=== PATIENT | female | born 2000 | race Two or more races ===

== ENCOUNTER 2024-01-18 14:13 | Observation (INO) | payer MEDICAID, SELFPAY ==
[2024-01-18] VITALS (40 sets, daily range): BP systolic 119–120; BP diastolic 76–86; PULSE 108–135; RESP 18–22; TEMP 36.8–37.6; O2SAT 90–100; BMI 42.4
[2024-01-18] MEDS: RINGERS LACTATED 1000 ML 1,000 ML 999 ML IV (14:45)
[2024-01-18 15:43] LABS: Collection Type, Urine Clean Catch
[2024-01-18 15:44] LABS: Basophils % (Auto) 0 % (0-2.5); Eosinophils # (Auto) 0.1 Thou/mm3 (0.0-0.5); Eosinophils % (Auto) 1 % (0-10); Hematocrit 37.8 % (36.0-46.0); Hemoglobin 12.5 g/dL (12.0-16.0); Immature Granulocytes % (Auto) 0 % (0-0); Immature Granulocytes Auto 0.04 Thou/mm3 (0.00-0.00); Lymphocytes # (Auto) 0.5 Thou/mm3 (1.0-4.8); Lymphocytes % (Auto) 4 % (10-50); Mean Corpuscular HGB Conc 33.1 g/dl (31.0-37.0); Mean Corpuscular Hemoglobin 27.1 pg (25.0-35.0); Mean Corpuscular Volume 82 fL (80-100); Monocytes # (Auto) 0.6 Thou/mm3 (0.0-0.8); Monocytes % (Auto) 5 % (0-12); Neutrophils # (Auto) 10.9 Thou/mm3 (1.8-7.7); Neutrophils % (Auto) 90 % (37-80); Nucleated Red Blood Cell % 0 /100 WBC (0); Platelet Count 175 Thou/mm3 (140-440); RDW Standard Deviation 47.7 fL (36.4-46.3); Red Blood Count 4.62 Miln/mm3 (4.00-5.20); White Blood Count 12.1 Thou/mm3 (3.6-11.0)
[2024-01-18 15:52] LABS: Bilirubin,Urine Negative (Negative); Blood,Urine Negative (Negative); Clarity,Urine Clear (Clear/Hazy); Color,Urine Lt-Yellow (Lt Yel-Yel); Glucose, Urine Negative (Negative); Ketones,Urine Negative (Negative); Nitrite,Urine Negative (Negative); PH,Urine 5.5 (5.0-7.0); Protein,Urine Trace (Neg - Trace); RBC,Urine 1 /hpf (0-3); Specific Gravity,Urine 1.018 (1.001-1.035); Squamous Epithelial Cell,Urine 4 /hpf (0-5); Urobilinogen,Urine Negative mg/dL (0.0-1.0); WBC,Urine 1 /hpf (0-5)
[2024-01-18 15:53] LABS: Leukocyte Esterase,Urine Negative (Negative)
[2024-01-18 16:14] LABS: Alanine Aminotransferase 14 U/L (10-49); Albumin, Serum 3.9 gm/dL (3.5-5.0); Albumin/Globulin Ratio 1.3 (1.2-2.2); Alkaline Phosphatase 214 U/L (46-116); Anion Gap 10 (7-16); Aspartate Amino Transferase 16 U/L (0-34); BUN/Creatinine Ratio 23 Ratio (12-20); Bilirubin,Total 0.6 mg/dL (0.3-1.2); Blood Urea Nitrogen 9 mg/dL (9-23); Calcium 8.8 mg/dL (8.3-10.6); Calcium (Corrected) 8.9 mg/dL (8.5-10.1); Carbon Dioxide 20.6 mMol/L (20.0-31.0); Chloride 104 mMol/L (98-107); Creatinine (Component) 0.4 mg/dL (0.6-1.3); Estimated Creatinine Clearance 222.9 mL/min (>60); Glucose 76 mg/dL (74-106); LDH (Lactate Dehydrogenase) 241 U/L (120-246); Osmolality,Calculated 267 (275-295); Potassium 3.8 mMol/L (3.4-5.1); Sodium 135 mMol/L (136-145); Total Protein 6.9 gm/dL (5.7-8.2); Uric Acid 4.8 mg/dL (3.1-7.8); eGFR > 60 See Note
[2024-01-18 16:21] LABS: Syphilis Nonreactive (Nonreactive)
--- NOTE | 2024-01-18 17:54 | PC.NURSE ---
Patient arrived to triage at 1400 complaining of uterine contractions every 3-5 minutes that started at 0900. Patient denies any LOF/bleeding. Patient states active movement. On arrival patient with elevated maternal HR between 120-135. Labs and EKG ordered by Vanna Vee CNM. Results WNL. NST reactive. Patient checked 2 hours after initial cervical exam and patient unchanged. Patient declines IV pain medication and or epidural. Ordered to discharge patient. Patient instructed to follow up with OB at next scheduled appt this week. Labor precautions given including reasons to return. Patient verbalizes understanding, all questions answered and encouraged.
[2024-01-18 20:54] LABS: Fibrinogen 553 mg/dL (175-375); Partial Thromboplastin Time 30.5 Seconds (22.0-36.0); Prothrombin Time 10.6 Seconds (9.0-12.2)
== END 2024-01-18 17:34 | disposition home or self-care (01) ==
PROVIDERS: Admitting Provider Advanced Practice Midwife; Visit Provider Advanced Practice Midwife
DX: Z34.83 Encounter for supervision of other normal pregnancy, third trimester (principal); Z3A.38 38 weeks gestation of pregnancy
CPT/HCPCS: 36415; 59025; 59899; 80053; 81001; 83615; 84550; 85025; 85384; 85610; 85730; 86780; 86850; 86900; 86901; J7120

== ENCOUNTER 2024-01-27 15:50 | Inpatient (IN) | payer MEDICAID, SELFPAY ==
[2024-01-27] VITALS (16 sets, daily range): BP systolic 107–132; BP diastolic 56–91; PULSE 88–106; RESP 18; TEMP 36.7–36.8; BMI 38.8
--- NOTE | 2024-01-27 15:45 | XR_ITS ---
Examination: Biophysical profile, ultrasound Date and time of exam: January 27, 2024 1725 hrs. Indications: Leaking amniotic fluid today Technique: Multiple transabdominal sonographic images of the pelvis abdomen obtained. Attention is directed to the breathing movement, gross body movement, amniotic fluid volume and tone. Findings: Amniotic fluid index 12.0 cm Total biophysical profile is 8 of 8. breathing movement is 2. Gross body movement is 2. tone is 2. Qualitative amniotic fluid volume is 2 Impression: Biophysical profile is 8 of 8.
--- NOTE | 2024-01-27 15:45 | XR_ITS ---
Examination: Complete OB ultrasound greater than 14 weeks Date and time of exam: January 27, 2024 1654 hrs. Indications: Leaking amniotic fluid today Findings: Viable intrauterine single fetus with single amniotic sac presentation cephalic Cardiac motion 147 BPM Placenta anterior grade 3 Umbilical cord insertion seen Amniotic fluid index 13 cm Cervix 3.2 cm Ovaries obscured by the enlarged uterus. Composite estimated gestational age based on BPD, head circumference, abdominal circumference, femur length is 38 weeks 5 days Estimated weight 3846.8 g. Survey of intracranial anatomy, spinal anatomy, abdominal anatomy, four-chamber heart performed with no abnormalities identified. Impression: Viable intrauterine gestation cephalic presentation. Estimated gestational age 38 weeks 5 days Estimated weight 3846.8 g Amniotic fluid index 13 cm
[2024-01-27 16:26] LABS: ROM Kit Lot # 57805053
[2024-01-27 16:27] LABS: ROM Swab Mixed By: MEDIA1; Rupture of Fetal Membranes Positive (Negative); Swb Mxed in Solvent 1 min? Yes
[2024-01-27 17:40] LABS: Basophils % (Auto) 0 % (0-2.5); Eosinophils # (Auto) 0.1 Thou/mm3 (0.0-0.5); Eosinophils % (Auto) 1 % (0-10); Hematocrit 37.3 % (36.0-46.0); Hemoglobin 12.2 g/dL (12.0-16.0); Immature Granulocytes % (Auto) 0 % (0-0); Immature Granulocytes Auto 0.04 Thou/mm3 (0.00-0.00); Lymphocytes # (Auto) 1.4 Thou/mm3 (1.0-4.8); Lymphocytes % (Auto) 15 % (10-50); Mean Corpuscular HGB Conc 32.7 g/dl (31.0-37.0); Mean Corpuscular Hemoglobin 26.7 pg (25.0-35.0); Mean Corpuscular Volume 82 fL (80-100); Monocytes # (Auto) 0.8 Thou/mm3 (0.0-0.8); Monocytes % (Auto) 8 % (0-12); Neutrophils # (Auto) 7.3 Thou/mm3 (1.8-7.7); Neutrophils % (Auto) 76 % (37-80); Nucleated Red Blood Cell % 0 /100 WBC (0); Platelet Count 178 Thou/mm3 (140-440); RDW Standard Deviation 47.3 fL (36.4-46.3); Red Blood Count 4.57 Miln/mm3 (4.00-5.20); White Blood Count 9.6 Thou/mm3 (3.6-11.0)
[2024-01-27] MEDS: RINGERS LACTATED 1000 ML 1,000 ML 100 ML IV (18:06)
[2024-01-27 18:39] LABS: Syphilis Nonreactive (Nonreactive)
[2024-01-27] MEDS: MISOPROSTOL 50 mCg TABLET PO (21:29)
[2024-01-28] VITALS (47 sets, daily range): BP systolic 98–141; BP diastolic 55–87; PULSE 70–106; RESP 16–18; TEMP 36.6–37.1; O2SAT 82–100
[2024-01-28] MEDS: MISOPROSTOL 50 mCg TABLET PO (02:40)
[2024-01-28] MEDS: Ampicillin Inj 2,000 MG in SODIUM CHLORIDE 0.9% (P) 100 ML 100 MG IV (03:10)
[2024-01-28] MEDS: fentaNYL CIT INJ 50 mCg/ML AMP 2ML 100 MCG IV (05:57)
[2024-01-28] MEDS: OXYTOCIN in NS 30 units 30 UNIT/500 ML BAG IV (06:50)
--- NOTE | 2024-01-28 07:24 | PC.NURSE ---
pt placed on bedpan
[2024-01-28] MEDS: MINERAL OIL 30 ML UDC TOP (07:29)
[2024-01-28] MEDS: MISOPROSTOL 200 mCg TABLET 800 MCG PR (07:33)
[2024-01-28] MEDS: OXYTOCIN INJ 10 UNIT/ML VIAL IM (07:36)
[2024-01-28] MEDS: OXYTOCIN in NS 20 units 20 UNIT/1,000 ML BAG 125 UNIT IV (07:36)
[2024-01-28] MEDS: TRANEXAMIC ACID 1,000 MG IVPB 1,000 MG/100 ML BAG 200 MG IV (07:40)
[2024-01-28] MEDS: BENZO/LANO/ALOE (Dermoplast) 60 GM CAN 1 SPRAY TOP (07:42)
--- NOTE | 2024-01-28 07:56 | PD.LDHP ---
Documentation for date of: 01/28/24 OB Labor/Induct. HPI History of Present Illness Chief complaint: ROM : 4 Para: 3 Term pregnancies: 3 pregnancies: 0 Living children: 3 History of Abortions: Spontaneous and Elective: 0 History of Vaginal deliveries: 3 History of sections: No History of : No Date of last menstrual period: 04/26/23 RALPH: 01/31/24 Gestational Age (weeks): 39 Gestational Age (days): 4 Gestational age based on last menstrual period: 39 Indication for induction: medical complication (GDM on metformin on metformin 500 bid) History of present illness: This is a 23-year-old 4 para 3 admit to labor and delivery with complaints of leaking since 1240 and contractions since then as well however mild and irregular. Patient is been followed at [facility] care. First visit 8 weeks. Last. April 25. Estimated due date January 31, 2024. Patient had 2 MFM ultrasounds and both confirmed dates and showed normal anatomy. Patient been followed at [facility] care. First visit 8 weeks. She A+, antibody screen negative, RPR nonreactive, rubella immune, hepatitis B negative,, hepatitis C negative, HIV negative, she GC and Chlamydia were negative. Patient had abnormal 1 hour and her 3-hour was abnormal as well. She was then started on metformin 500 twice daily and GDM diet with weekly NST BPP and GBS negative. Denies social habits. Denies surgery. Denies chronic illness. History of Present Dating criteria: LMP confirmed by 1st trimester US Adequate Care: Yes Ultrasounds: normal 1st trimester US and normal mid trimester US Obstetrical complications: gestational diabetes Medical complications: none Labs Labs: Negative: Hepatitis B, HIV, Chlamydia, Gonorrhea and Group Beta Strep Review of Systems Review of Systems Systems Reviewed: All systems reviewed, normal except as documented Past Medical History Surgical History SURGICAL: Negative Section Meds Home Medications and Allergies Home Medications ?Medication ?Instructions ?Recorded ?Confirmed ?Type pren vit comb.1-iron cb-FA-DSS 90 1 tab PO DAILY 05/30/22 01/27/24 History mg-1 mg-50 mg tablet metformin 500 mg tablet 500 mg PO BID 01/18/24 01/27/24 History Allergies Allergy/AdvReac Type Severity Reaction Status Date / Time lactose AdvReac Severe Abdominal Verified 01/27/24 16:38 Pain OB Exam Physical Exam Vital signs: Temp Pulse Resp BP Pulse Ox 98.3 F 90 17 139/87 H 99 01/28/24 06:09 01/28/24 07:04 01/28/24 06:09 01/28/24 07:04 01/28/24 07:30 Narrative: Alert and oriented. Normal heart rate and rhythm. Lungs clear no wheezes. Gravid abdomen. Gynecoid pelvis. Estimated weight 8 and half pounds. Vaginal exam on admission was 2-3, 50%, -3. Posterior. And soft. heart category 1 with accelerations and moderate variability irregular mild uc Detailed Labor and Delivery Exam Dilation (cm): 3 Effacement (%): 50 Cervix position: posterior station: -3 Consistency: soft Presentation: Vertex Cervical ripeness score: 5 Membranes: ruptured Amniotic fluid: clear Baseline heart rate: 135 monitor accelerations: 15x15 monitor decelerations: None continuous churn buttermaker variability: Moderate (11-25) Contraction duration (sec): 30 Tachysystole: No Contraction intensity: Mild OB Results Labs 01/27/24 17:20 Labs: Short CBC 01/27/24 Range/Units 17:20 WBC 9.6 (3.6-11.0) Thou/mm3 Hgb 12.2 (12.0-16.0) g/dL Hct 37.3 (36.0-46.0) % Plt Count 178 (140-440) Thou/mm3 Impressions Impression: GDM on metformin. Rupture membranes early labor OB Assessment & Plan Assessment and Plan (1) Normal labor and delivery: Status: Acute Additional Plan Induction method: per misoprostol protocol Plan: induction, anticipate NVD and consult MD renae
--- NOTE | 2024-01-28 08:02 | OBDSUM_ITS ---
Data ([employer]) Data Hx Section: No : 4 Para: 3 Term: 3 : 0 : 0 Delivery Data ([employer]) Labor Data Stimulated/Augmented: No Induction: Yes Method: Cytotec ROM Date: 01/27/24 ROM Time: 12:50 Rupture Type: SROM Amniotic Fluid: Clear Delivery Data EDC: 01/31/24 EDC calculated by:: LMP/early US confirmation Labor Onset Stage 1 Date: 01/28/24 Labor Onset Stage 1 Time: 05:57 Labor Onset Stage 2 Date: 01/28/24 Labor Onset Stage 2 Time: 07:13 Delivery Date: 01/28/24 Delivery Time: 07:32 Gestational age (weeks): 39 Gestational age (days): 4 Placenta Delivery Date: 01/28/24 Placenta Delivery Time: 07:36 Delivered by: Vanna Vee Delivery nurse: Corry Menendez Delivery Method Delivery: Vaginal Delivery Type: Spontaneous Presentation: Vertex Position: OA Anesthesia Type Primary Anesthesia: None Delivery Room Medications Intrapartum Medications: Narcotics and Tocolytics Post Delivery Medications: Antibiotics, Tocolytics and Cytotec Post Delivery Medications N/A: No Placenta Placenta Delivery: Spontaneous (placenta inspected, intact, membranes intact) Placenta Sent for Examination: No Cord Sample: Cord Blood Obtained Episiotomy Episiotomy: None Lacerations #1: Periurethral: no repair EBL Estimated blood loss (ml): 400 Umbilical Cord Umbilical Vessels: 3 Nuchal Cord: None Body Cord: None [employer] Data ([employer]) [employer] Data Infant Gender: Male Weight Grams: 4090 1 Minute Total: 7 5 Minute Total: 9
[2024-01-28] MEDS: IBUPROFEN TAB 400 MG TABLET 800 MG PO ×2 (09:17→23:07)
[2024-01-28 17:09] LABS: Basophils % (Auto) 0 % (0-2.5); Eosinophils # (Auto) 0.1 Thou/mm3 (0.0-0.5); Eosinophils % (Auto) 1 % (0-10); Hematocrit 31.1 % (36.0-46.0); Hemoglobin 10.2 g/dL (12.0-16.0); Immature Granulocytes % (Auto) 1 % (0-0); Immature Granulocytes Auto 0.06 Thou/mm3 (0.00-0.00); Lymphocytes # (Auto) 1.6 Thou/mm3 (1.0-4.8); Lymphocytes % (Auto) 13 % (10-50); Mean Corpuscular HGB Conc 32.8 g/dl (31.0-37.0); Mean Corpuscular Hemoglobin 27.3 pg (25.0-35.0); Mean Corpuscular Volume 83 fL (80-100); Monocytes # (Auto) 0.9 Thou/mm3 (0.0-0.8); Monocytes % (Auto) 7 % (0-12); Neutrophils # (Auto) 9.9 Thou/mm3 (1.8-7.7); Neutrophils % (Auto) 79 % (37-80); Nucleated Red Blood Cell % 0 /100 WBC (0); Platelet Count 183 Thou/mm3 (140-440); RDW Standard Deviation 48.4 fL (36.4-46.3); Red Blood Count 3.73 Miln/mm3 (4.00-5.20); White Blood Count 12.5 Thou/mm3 (3.6-11.0)
[2024-01-29 04:16] VITALS: BP 121/75; PULSE 72; RESP 16; TEMP 36.5; O2SAT 98
[2024-01-29] MEDS: ACETAMINOPHEN 325 MG TABLET 650 MG PO (05:42)
[2024-01-29 08:00] VITALS: BP 123/78; PULSE 78; RESP 18; TEMP 36.8; O2SAT 98
--- NOTE | 2024-01-29 08:25 | ESPR_ITS ---
Subjective Subjective Interval history: No complaints of pain. No dizziness. Bonding and breast-feeding. Patient wants Depo Provera prior to discharge Exam Vital Signs Temp Pulse Resp BP Pulse Ox O2 Del Method 97.7 F 72 16 121/75 98 Room Air 01/29/24 04:16 01/29/24 04:16 01/29/24 04:16 01/29/24 04:16 01/29/24 04:16 01/29/24 04:16 Narrative Exam Vital signs stable afebrile. Breasts are soft. Fundus firm below the umbilicus. Perineum intact no swelling. Small lochia. Uterus well involuted. Negative Homans' sign. No signs of phlebitis. Objective Labs 01/28/24 16:40 Labs: Laboratory Results - last 24 hr 01/28/24 16:40 WBC 12.5 H RBC 3.73 L Hgb 10.2 L D Hct 31.1 L MCV 83 MCH 27.3 MCHC 32.8 RDW Std Deviation 48.4 H Plt Count 183 Neut % (Auto) 79 Lymph % (Auto) 13 [place] % (Auto) 7 Eos % (Auto) 1 Baso % (Auto) 0 Neut # (Auto) 9.9 H Lymph # (Auto) 1.6 [place] # (Auto) 0.9 H Eos # (Auto) 0.1 Baso # (Auto) 0.0 Immature Gran # (Auto) 0.06 H Absolute Nucleated RBC 0.00 Immature Gran % 1 H Nucleated RBC % 0 Assessment & Plan Problem List (1) Normal labor and delivery: Status: Acute Assessment Comment Assessment comment: 24 hr pp Plan Comment Plan Comment: Discharge home with baby today. Depo-Provera 150 IM prior to discharge. No sex for at least 2 weeks. Reviewed Depo-Provera and signs and symptoms. Discussed signs and symptoms of infection. Discussed ER precautions and parameters. Discussed danger signs and symptoms. Increase fluids and rest. Return in 3 weeks visit Time Spent With Patient Time: Total time spent is greater than 50% in coordination of care (as documented) at patient's floor/unit and/or counseling patient:
--- NOTE | 2024-01-29 08:27 | ESDS_ITS ---
DS: Providers Provider Date of admission: 01/27/24 17:15 Primary care physician: Physician No Primary/Family Admitting Provider: Vanna Vee CNM Attending Provider on Admission: Vanna Vee CNM Consults: 01/28/24 08:09 Referral Routine Comment: Attending Provider on DC: Vanna Vee CNM Discharging Provider: Vanna Vee CNM DS: Diagnosis Problem List Completed Was Problem List Reviewed/Reconciled?: Yes Summary/Hosp Course Brief History: This is a 23-year-old 4 para 3 admit to labor and delivery with complaints of leaking since 1240 and contractions since then as well however mild and irregular. Patient is been followed at [facility] care. First visit 8 weeks. Last. April 25. Estimated due date January 31, 2024. Patient had 2 MFM ultrasounds and both confirmed dates and showed normal anatomy. Patient been followed at [facility] care. First visit 8 weeks. She A+, antibody screen negative, RPR nonreactive, rubella immune, hepatitis B negative,, hepatitis C negative, HIV negative, she GC and Chlamydia were negative. Patient had abnormal 1 hour and her 3-hour was abnormal as well. She was then started on metformin 500 twice daily and GDM diet with weekly NST BPP and GBS negative. Denies social habits. Denies surgery. Denies chronic illness. Peripartum Data Delivery Method: Normal Vaginal Delivery Episiotomy Description: None Laceration Description: yes (PU, no repair) Time Spent with Patient Time attestation: Total time spent providing and/or coordinating discharge services: Exam Vital Signs Temp Pulse Resp BP Pulse Ox O2 Del Method 97.7 F 72 16 121/75 98 Room Air 01/29/24 04:16 01/29/24 04:16 01/29/24 04:16 01/29/24 04:16 01/29/24 04:16 01/29/24 04:16 Discharge Plan Plan Patient Disposition: HOME (Self Care) Prescriptions/Referrals Prescriptions/Med Rec: No Action metformin 500 mg Tablet 500 mg PO BID pren vit comb.1-iron cb-FA-DSS 90-1-50 mg Tablet 1 tab PO DAILY Referrals: No Primary/Family,Physician [Primary Care Provider] - Patient/Caregiver Discharge Instructions Print Language: Ivorian Activity Restrictions/Additional Instructions: Depo-Provera 150 IM prior to discharge. No sex for 2 weeks. Reviewed Depo signs symptoms and side effects. Discussed ER precautions and parameters. Discussed danger signs symptoms and signs symptoms of infection. Discharged today with baby. Return to [facility] in 3 weeks visit. Increase fluids and rest. Tylenol or ibuprofen for pain. And continue vitamins Stand Alone Forms: Laura Award Info., Patient Portal Info Letter Discharge Order Discharge Orders: Discharge (Routine); Ordered 01/29/24 Ordered By: Vanna Vee Planned Discharge Date 01/29/24
[2024-01-29] MEDS: MEDRoxyPROGESTERone ACET Inj 150 MG/ML SYRINGE IM (09:48)
--- NOTE | 2024-01-29 10:54 | PC.NURSE ---
Cleared by social media specialist
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
== END 2024-01-29 11:30 | disposition home or self-care (01) | DRG 560 ==
LOC: S4SX 01-28 13:30 → S4NX 01-28 15:09
PROVIDERS: Admitting Provider Advanced Practice Midwife; Visit Provider Advanced Practice Midwife
DX: O24.425 Gestational diabetes mellitus in childbirth, controlled by oral hypoglycemic drugs (principal); Z3A.39 39 weeks gestation of pregnancy; Z37.0 Single live birth
CPT/HCPCS: 36415; 59409; 76805; 76819; 84112; 85025; 86780; 86850; 86900; 86901; 94762; J0290; J1050; J2590; J3010; J3490; J7120; S0191; A9270